=== PATIENT | female | born 1990 | race Two or more races ===

== ENCOUNTER 2022-10-22 17:58 | Emergency (ER) | payer OTHER ==
[~2022-10-22] VITALS: Ht 165.1 cm; Wt 45.4 kg
== END 2022-10-22 21:21 | disposition home or self-care (01) ==
LOC: ER 17:58
DX: N94.6 Dysmenorrhea, unspecified (principal)

== ENCOUNTER 2022-12-26 02:40 | Emergency (ER) | payer OTHER ==
[~2022-12-26] VITALS: Ht 167.6 cm; Wt 52.2 kg
[2022-12-26] MEDS ORDERED: AMOX-CLAV 875-1 EACH PO (04:01)
[2022-12-26] MEDS ORDERED: DICLOFENAC SODI75 MG PO (04:01)
== END 2022-12-26 05:04 | disposition home or self-care (01) ==
LOC: ER 02:41
DX: H66.91 Otitis media, unspecified, right ear (principal)

== ENCOUNTER 2023-03-27 17:34 | Emergency (ER) | payer OTHER ==
[~2023-03-27] VITALS: Ht 162.6 cm; Wt 51.7 kg
[~2023-03-27 17:34] MED LIST: AMOX-CLAV 875-1 EACH PO; DICLOFENAC SODI75 MG PO
== END 2023-03-27 19:04 | disposition home or self-care (01) ==
LOC: ER 17:34
DX: R20.2 Paresthesia of skin (principal)

== ENCOUNTER 2023-05-23 12:13 | Outpatient (CLI) | payer OTHER | END 2023-05-23 12:40 | disposition home or self-care (01) | LOC: TOM 12:13 | PROVIDERS: ATTEND Internal Medicine | DX: R51.9 Headache, unspecified (principal) ==

== ENCOUNTER 2023-09-21 20:09 | Emergency (ER) | payer OTHER ==
[~2023-09-21] VITALS: Ht 167.6 cm; Wt 53.5 kg
[2023-09-21] MEDS ORDERED: ACETAMINOPHEN 500 MG GEL..CAP PO ONE ×2 (20:45→20:47)
[2023-09-21] MEDS ORDERED: GUAIFEN/DEXTROMETHORPHAN/PE 10 ML BLIST.PACK PO ONE ×2 (20:45→20:47)
[2023-09-21 21:02] LABS: HEMATOCRIT 39.8 % (36.0-45.00); HEMOGLOBIN 13.6 g/dL (12.0-15.00); MEAN CELL VOLUME 88.2 fL (80.00-100.00); MEAN CORPUSCULAR HEMOGLOBIN 30.2 pg (27.00-32.0); MEAN CORPUSCULAR HGB CONC 34.3 g/dl (32.0-36.0); PLATELET COUNT 208 K/uL (150-450); RED BLOOD COUNT 4.51 M/uL (4.00-6.00); RED CELL DISTRIBUTION WIDTH 13.9 % (11.5-14.5)
[2023-09-21] MEDS ORDERED: TUSNEL LIQUID178 ML PO (22:13)
[2023-09-21] MEDS ORDERED: ZITHROMAX500 MG PO (22:13)
== END 2023-09-21 22:20 | disposition home or self-care (01) ==
LOC: ER 20:10
PROVIDERS: General Practice
DX: B34.9 Viral infection, unspecified (principal); Z20.822 Contact with and (suspected) exposure to COVID-19

== ENCOUNTER → 2024-09-19 | Outpatient (CLI) | payer OTHER ==
[~2024-09-19] MED LIST changes: +TUSNEL LIQUID178 ML PO; +ZITHROMAX500 MG PO
== END | disposition home or self-care (01) ==
LOC: RAD 13:34
PROVIDERS: ATTEND Orthopaedic Surgery
DX: M25.531 Pain in right wrist (principal); M25.532 Pain in left wrist